=== PATIENT | female | born 1990 | race African-American/Black ===

== ENCOUNTER 2017-01-06 16:01 | Emergency (ER) | payer OTHER ==
[~2017-01-06] VITALS: Ht 172.7 cm; Wt 65.8 kg
[2017-01-06 16:45] VITALS: BP 138/78
[2017-01-06] MEDS ORDERED: NAPR500T PO (16:55)
[2017-01-06] MEDS ORDERED: PENI500T PO (16:55)
[2017-01-06] MEDS ORDERED: TRAM50TA PO (16:55)
--- NOTE | 2017-01-06 16:56 | PHYS DOC ---
Past Medical History Past Medical History: No Pertinent History Past Surgical History: No Surgical History Alcohol Use: None Drug Use: None Adult General Chief Complaint Chief Complaint: DENTAL PROBLEM HPI HPI Patient is a 26 year old female presents to the emergency department with complaints of left lower dental pain. Patient states she developed pain 2 days ago and is gotten progressively worse. She denies fever. She denies headache. She denies difficulty with swallowing or phonation. Review of Systems Review of Systems Constitutional: Denies fever or chills [] Eyes: Denies change in visual acuity, redness, or eye pain [] HENT: Denies nasal congestion or sore throat, dental pain Respiratory: Denies cough or shortness of breath [] Cardiovascular: No additional information not addressed in HPI [] GI: Denies abdominal pain, nausea, vomiting, bloody stools or diarrhea [] : Denies dysuria or hematuria [] Musculoskeletal: Denies back pain or joint pain [] Integument: Denies rash or skin lesions [] Neurologic: Denies headache, focal weakness or sensory changes [] Endocrine: Denies polyuria or polydipsia [] Allergies Allergies Allergies Coded Allergies Type Severity Reaction Last Updated Verified No Known Drug Allergies 06/25/13 No Physical Exam Physical Exam Constitutional: Well developed, well nourished, no acute distress, non-toxic appearance. [] HENT: Normocephalic, atraumatic, bilateral external ears normal, oropharynx moist, no oral exudates, nose normal. Patient with diffuse caries. Left lower gingiva, round decayed tooth #20, there is swelling and erythema. There is no pointing or fluctuance. [] Eyes: PERRLA, EOMI, conjunctiva normal, no discharge. [] Neck: Normal range of motion, no tenderness, supple without lymphadenopathy, no stridor. [] Cardiovascular:Heart rate regular rhythm, no murmur [] Lungs & Thorax: Bilateral breath sounds clear to auscultation [] Skin: Warm, dry, no erythema, no rash. [] Neurologic: Alert and oriented X 3, normal motor function, normal sensory function, no focal deficits noted. [] Current Patient Data Vital Signs Vital Signs Date Time Temp Pulse Resp B/P (MAP) Pulse Ox O2 Delivery O2 Flow Rate FiO2 01/06/17 16:45 99.3 65 20 98 Room Air 99.3 EKG EKG [] Radiology/Procedures Radiology/Procedures [] Course & Med Decision Making Course & Med Decision Making Pertinent Labs and Imaging studies reviewed. (See chart for details) [] Dragon Disclaimer Dragon Disclaimer This electronic medical record was generated, in whole or in part, using a voice recognition dictation system. Departure Departure Impression: Primary Impression: Pain, dental Disposition: HOME, SELF-CARE Condition: STABLE Referrals: NO PCP [facility]PCP) [facility] Patient Instructions: Dental Abscess, Dental Caries Additional Instructions: Follow-up with the dentist, call for appointment tomorrow. Scripts Tramadol Hcl (TRAMADOL HCL) 50 Mg Tablet 50 MG PO Q6HRS Y for PAIN, #12 TAB 0 Refills Prov: BLAISE GUERRERO APRN 01/06/17 Naproxen (NAPROSYN) 500 Mg Tablet 500 MG PO BID Y for PAIN, #20 TAB Prov: BLAISE GUERRERO APRN 01/06/17 Penicillin V Potassium (PENICILLIN V POTASSIUM) 500 Mg Tablet 1 TAB PO QID, #40 TAB Prov: BLAISE GUERRERO APRN 01/06/17 BLAISE GUERRERO APRN Jan 06, 2017 16:56
[2017-01-06] MEDS ORDERED: KETOROLAC TROMETHAMINE 60 MG/2 ML INJ. IM ONE (17:00)
== END 2017-01-06 17:03 | disposition home or self-care (01) ==
LOC: ER 16:01
DX: K08.89 Other specified disorders of teeth and supporting structures (principal)
CPT/HCPCS: 96372; 99283; J1885

== ENCOUNTER 2018-07-07 07:53 | Observation (INO) | payer OTHER ==
[~2018-07-07 07:53] MED LIST: NAPR-683 PO; PENI500T PO; TRAM50TA PO
[2018-07-07 09:00] LABS: BILIRUBIN,URINE NEGATIVE (NEG); CLARITY,URINE CLEAR; COLOR,URINE YELLOW; NITRITE,URINE NEGATIVE (NEG); PH,URINE 7.5; PROTEIN,URINE NEGATIVE (NEG-TRACE)
[2018-07-07 09:16] LABS: BACTERIA,URINE FEW /HPF (0-FEW); RBC,URINE 0 /HPF (0-2); SQUAMOUS EPITHELIAL CELL,UR MANY /LPF
== END 2018-07-07 10:18 | disposition home or self-care (01) ==
LOC: 3 SO LND 07:53
PROVIDERS: ADMIT Specialist; ATTEND Specialist
DX: O42.90 Premature rupture of membranes, unspecified as to length of time between rupture and onset of labor, unspecified weeks of gestation (principal); O26.899 Other specified pregnancy related conditions, unspecified trimester; N89.8 Other specified noninflammatory disorders of vagina; Z3A.00 Weeks of gestation of pregnancy not specified
CPT/HCPCS: 81001; G0378; G0379; 59025

== ENCOUNTER 2018-07-09 12:49 | Inpatient (IN) | payer OTHER ==
[~2018-07-09] VITALS: Ht 172.7 cm; Wt 79.9 kg
[2018-07-09 13:09] VITALS: BP 126/67
[2018-07-09] MEDS ORDERED: IV RINGERS,LACTATED 1000ML 1,000 ML IV PRN (13:15)
[2018-07-09] MEDS ORDERED: LIDOCAINE 1% PF 30 ML VIAL. INJ PRN (13:15)
[2018-07-09] MEDS ORDERED: OXYTOCIN 30 UNIT/500 ML PREMIX 500 ML IV PRN ×2 (13:15)
[2018-07-09] MEDS ORDERED: 0.9 % SODIUM CHLORIDE 10 ML DISP.SYRIN. IV PRN (13:15)
[2018-07-09 13:42] LABS: BASO # 0.1 x10^3/uL (0.0-0.2); BASO % 1 % (0-3); EOS # 0.1 x10^3/uL (0.0-0.7); EOS % 1 % (0-3); HEMATOCRIT 33.3 % (36.0-47.0); HEMOGLOBIN 11.2 g/dL (12.0-15.5); LYMPH # 1.4 x10^3/uL (1.0-4.8); LYMPH % 23 % (24-48); MEAN CORPUSCULAR HEMOGLOBIN 32 pg (25-35); MEAN CORPUSCULAR HGB CONC 34 g/dL (31-37); MEAN CORPUSCULAR VOLUME 94 fL (79-100); MONO # 0.4 x10^3/uL (0.0-1.1); MONO % 7 % (0-9); NEUT # 4.3 x10^3uL (1.8-7.7); NEUT % 68 % (31-73); PLATELET COUNT 146 x10^3/uL (140-400); RED BLOOD COUNT 3.56 x10^6/uL (3.50-5.40); RED CELL DISTRIBUTION WIDTH 13.7 % (11.5-14.5); WHITE BLOOD COUNT 6.3 x10^3/uL (4.0-11.0)
[2018-07-09 13:45] LABS: BILIRUBIN,URINE NEGATIVE (NEG); CLARITY,URINE CLEAR; COLOR,URINE YELLOW; NITRITE,URINE NEGATIVE (NEG); PROTEIN,URINE NEGATIVE (NEG-TRACE); UROBILINOGEN,URINE 0.2 mg/dL (0.2 mg/dL)
[2018-07-09 13:49] LABS: BARBITURATES NEG (NEG); BENZODIAZEPINES NEG (NEG); CANNABINOIDS NEG (NEG); COCAINE NEG (NEG); METHADONE NEG (NEG); OPIATES NEG (NEG); PHENCYCLIDINE NEG (NEG)
[2018-07-09 13:52] LABS: AMPHETAMINE/METHAMPHETAMINE NEG (NEG)
[2018-07-09 13:53] LABS: BACTERIA,URINE MODERATE /HPF (0-FEW); RBC,URINE OCC /HPF (0-2); WBC,URINE OCC /HPF (0-4)
[2018-07-09 13:54] LABS: SQUAMOUS EPITHELIAL CELL,UR MOD /LPF
[2018-07-09 14:00] LABS: CALCIUM 8.5 mg/dL (8.5-10.1); CREATININE 0.6 mg/dL (0.6-1.0); POTASSIUM 3.8 mmol/L (3.5-5.1)
--- NOTE | 2018-07-09 14:08 | PDOC1 ---
OB - History Hx of Present Care: Good Care Ultrasounds: Normal mid trimester US Obstetrical Complications: None Medical Complications: None Past Family/Social History * Past Medical, Surgical, Family and Obstetric Histories reviewed from chart. Rubella: Immune RPR/VDRL: Negative GBS Status: Negative HBsAG: Negative OB - Chief Complaint & HPI Date of Admission: Date of Admission: Jul 09, 2018 at 12:49 Chief Complaint/History : 3 Para: 2 EGA: 39 Reason for admission: induction of labor Admission Nurse Assessment Rev: Yes OB - Admission Exam Physical Exam HEENT: Normal Heart: Regular Rate Lungs: Clear Abdomen: Gravid, Non tender, Soft Extremities: Edema Reflexes: Normal Cervical Dilatation: 2cm Effacement: 50% Station: -3 Membranes: Intact Heart Rate: Normal Accelerations: Accelerations Present Decelerations: No decelerations Contractions on Admission: 6-10 Minutes Apart Intensity: Mild Text A: 39 wks IUP IOL secondary discomforts of P: Admit for IOL pitocin. DESEAN HOFFMANN Jr, MD Jul 09, 2018 14:08
[2018-07-09] MEDS ORDERED: NALBUPHINE 10 MG/ML AMPUL. IV PRN (17:15)
[2018-07-09] MEDS ORDERED: ONDANSETRON PF 4 MG/2 ML VIAL. ONE (17:30)
[2018-07-09] MEDS ORDERED: ONDANSETRON PF 4 MG/2 ML VIAL. IV PRN (17:45)
[2018-07-09] MEDS: IBUPROFEN 400 MG TABLET. PO PRN (20:35)
--- NOTE | 2018-07-09 20:37 | OP ---
DATE OF SURGERY: 07/09/2018 This patient is a 28-year-old female who is a 6, para 2, 39 week . The patient of Dr. Alston, admitted for induction of labor. She received IV Pitocin and she did have a spontaneous labor after that and got to 5 cm and then rapidly dilated to complete and had a precipitous vaginal delivery. A live male weighing 5 pounds 15 ounces, delivered at 5:15 p.m. Cord was clamped and cord blood was taken, placenta removed spontaneous. Estimated blood loss about 100 mL. The scores were good and no perineal tears. She did receive Pitocin after delivery of the placenta and the mother has tolerated the delivery well and baby is referred to filtration operator for further care and treatment. MARITZA HOLT MD DR: ANAIS/joe JOB#: [id number] / [id number]
[2018-07-09 23:30] VITALS: BP 104/66
[2018-07-10 04:15] VITALS: BP 120/69
--- NOTE | 2018-07-10 07:03 | PDOC ---
GENERAL General: Patient nursing the Baby. Doing ok. VITAL SIGNS Vital Signs: Vital Signs Date Time Temp Pulse Resp B/P (MAP) Pulse Ox O2 Delivery O2 Flow Rate FiO2 07/10/18 04:15 97.9 65 14 120/69 (86) 100 Room Air 97.9 I & O I & O Intake and Output 07/10/18 07:00 Intake Total 350 ml Balance 350 ml Intake Oral 350 ml # Voids 1 ALLERGIES Allergies: Allergies Coded Allergies Type Severity Reaction Last Updated Verified No Known Drug Allergies 06/25/13 No MEDS Medications: Current Medications Medications (Trade) Dose Ordered Sig/Alysa Start Time Stop Time Status Last Admin Dose Admin Ibuprofen (Motrin) 800 mg PRN Q6HRS PRN 07/09/18 13:15 07/09/18 20:35 800 MG Lidocaine HCl (Xylocaine 1% Pf 30ml Vial) 30 ml 1X PRN PRN 07/09/18 13:15 07/11/18 13:14 Nalbuphine HCl (Nubain) 10 mg PRN Q1HR PRN 07/09/18 17:15 07/09/18 17:30 10 MG Ondansetron HCl (Zofran) 4 mg PRN Q6HRS PRN 07/09/18 17:45 07/09/18 17:37 4 MG Oxytocin/Sodium Chloride 500 ml @ 0 mls/hr CONT PRN PRN 07/09/18 13:15 Ringer's Solution 1,000 ml @ 125 mls/hr Q8H PRN 07/09/18 13:15 07/09/18 13:39 125 MLS/HR Sodium Chloride (Normal Saline Flush) 3 ml QSHIFT PRN 07/09/18 13:15 LAB Lab: Laboratory Tests Test 07/09/18 13:00 07/09/18 13:27 Urine Collection Type Unknown Urine Color Yellow Urine Clarity Clear Urine pH 7.0 Urine Specific Sherman 1.010 Urine Protein Negative mg/dL (NEG-TRACE) Urine Glucose (UA) Negative mg/dL (NEG) Urine Ketones (Stick) Negative mg/dL (NEG) Urine Blood Negative (NEG) Urine Nitrite Negative (NEG) Urine Bilirubin Negative (NEG) Urine Urobilinogen Dipstick 0.2 mg/dL (0.2 mg/dL) Urine Leukocyte Esterase Negative (NEG) Urine RBC Occ /HPF (0-2) Urine WBC Occ /HPF (0-4) Urine Squamous Epithelial Cells Mod /LPF Urine Bacteria Moderate /HPF (0-FEW) Urine Opiates Screen Neg (NEG) Urine Methadone Screen Neg (NEG) Urine Barbiturates Neg (NEG) Urine Phencyclidine Screen Neg (NEG) Urine Amphetamine/Methamphetamine Neg (NEG) Urine Benzodiazepines Screen Neg (NEG) Urine Cocaine Screen Neg (NEG) Urine Cannabinoids Screen Neg (NEG) Urine Ethyl Alcohol Neg (NEG) White Blood Count 6.3 x10^3/uL (4.0-11.0) Red Blood Count 3.56 x10^6/uL (3.50-5.40) Hemoglobin 11.2 g/dL (12.0-15.5) Hematocrit 33.3 % (36.0-47.0) Mean Corpuscular Volume 94 fL (79-100) Mean Corpuscular Hemoglobin 32 pg (25-35) Mean Corpuscular Hemoglobin Concent 34 g/dL (31-37) Red Cell Distribution Width 13.7 % (11.5-14.5) Platelet Count 146 x10^3/uL (140-400) Neutrophils (%) (Auto) 68 % (31-73) Lymphocytes (%) (Auto) 23 % (24-48) Monocytes (%) (Auto) 7 % (0-9) Eosinophils (%) (Auto) 1 % (0-3) Basophils (%) (Auto) 1 % (0-3) Neutrophils # (Auto) 4.3 x10^3uL (1.8-7.7) Lymphocytes # (Auto) 1.4 x10^3/uL (1.0-4.8) Monocytes # (Auto) 0.4 x10^3/uL (0.0-1.1) Eosinophils # (Auto) 0.1 x10^3/uL (0.0-0.7) Basophils # (Auto) 0.1 x10^3/uL (0.0-0.2) Sodium Level 137 mmol/L (136-145) Potassium Level 3.8 mmol/L (3.5-5.1) Chloride Level 101 mmol/L (98-107) Carbon Dioxide Level 24 mmol/L (21-32) Anion Gap 12 (6-14) Blood Urea Nitrogen 5 mg/dL (7-20) Creatinine 0.6 mg/dL (0.6-1.0) Estimated GFR (Cockcroft-Gault) 144.0 Glucose Level 98 mg/dL (70-99) Calcium Level 8.5 mg/dL (8.5-10.1) Treponema pallidum Antibody Nonreactive (Nonreactive) ASSESSMENT & PLAN A&P Abdomen soft Uterus firm . Lochia Normal. Pt will go home tomorow. MARITZA HOLT MD Jul 10, 2018 07:03
[2018-07-10 07:18] LABS: HEMATOCRIT 32.4 % (36.0-47.0); HEMOGLOBIN 10.6 g/dL (12.0-15.5)
[2018-07-10 10:45] VITALS: BP 112/72
[2018-07-10] MEDS: IBUPROFEN 400 MG TABLET. PO PRN (17:53)
[2018-07-10 17:57] VITALS: BP 124/74
[2018-07-10] MEDS ORDERED: DIPHTH,PERTUSS(ACELL),TET TOX 0.5 ML DISP.SYRIN. VAX IM ONE (18:30)
[2018-07-10 22:00] VITALS: BP 111/71
[2018-07-11 05:30] VITALS: BP 129/73
[2018-07-11] MEDS: IBUPROFEN 400 MG TABLET. PO PRN (05:35)
[2018-07-11] MEDS ORDERED: MEASLES, MUMPS & RUBELLA VACC 0.5 ML VIAL. VAX SQ ONE (09:00)
--- NOTE | 2018-07-11 09:28 | PDOC3 ---
OB DISCHARGE SUMMARY DATE OF ADMISSION: 07/09/18 DATE OF DISCHARGE: 07/11/18 REASON FOR ADMISSION: Onset of labor INTRAPARTUM PROCEDURES: Spontanous Vag Deliv DISCHARGE DIAGNOSIS: Term Delivered DISCHARGE INFORMATION: Activity (ad kemar), Diet (regular), Instructions (pelvic rest x 6 wks) HOSPITAL COURSE Term gestation delivered vaginally uncomplicated. DESEAN HOFFMANN Jr, MD Jul 11, 2018 09:27
--- NOTE | 2018-07-11 09:28 | DISCH ---
DISCHARGE INSTRUCTIONS Condition on Discharge Condition on Discharge: Stable Activity After Discharge Activity Instructions for Disc: Activity as tolerated Lifting Instructions after Dis: No heavy lifting Driving Instructions after Dis: Do not drive today Diet after Discharge Diet after Discharge: Regular Contacting the [facility] after DC Call your doctor for: Concerns you may have Follow-Up Follow up with: Dr. Alston in 2 weeks. DESEAN HOFFMANN Jr, MD Jul 11, 2018 09:28
[2018-07-11] MEDS ORDERED: NAPR-683 PO (09:30)
[2018-07-11 16:17] VITALS: BP 117/80
== END 2018-07-11 17:36 | disposition home or self-care (01) | DRG 807 ==
LOC: 3 SO LND 12:49 → 3 NORTH 22:45
PROVIDERS: ADMIT Specialist; ATTEND Specialist
PROC: 10E0XZZ Delivery of Products of Conception, External Approach (ICD-10-PCS; principal; 2018-07-09)
PROC: 3E033VJ Introduction of Other Hormone into Peripheral Vein, Percutaneous Approach (ICD-10-PCS; 2018-07-09)
DX: O80 Encounter for full-term uncomplicated delivery (principal); Z37.0 Single live birth; Z3A.39 39 weeks gestation of pregnancy
CPT/HCPCS: 36415; 80048; 80307; 81001; 85014; 85018; 85025; 86592; 86850; 86900; 86901; 87086; 90471; 90715; J2300; J2405; J2590; J7120

== ENCOUNTER 2019-02-25 06:08 | Emergency (ER) | payer SELFPAY ==
[~2019-02-25] VITALS: Ht 172.7 cm; Wt 63.5 kg
[2019-02-25 07:00] VITALS: BP 123/75
[2019-02-25] MEDS ORDERED: TETRACAINE 0.5% OPHTH SOLUTION 4ML BOTTLE. OS ONE (08:45)
[2019-02-25] MEDS ORDERED: FLUORESCEIN OPHTH TEST STRIP. OS ONE (08:45)
[2019-02-25] MEDS ORDERED: ACETAMINOPHEN 500 MG TABLET PO ONE (08:45)
[2019-02-25] MEDS ORDERED: ONDANSETRON ODT 4 MG TAB.RAPDIS. ONE (09:34)
[2019-02-25] MEDS ORDERED: ONDANSETRON ODT 4 MG TAB.RAPDIS. PO ONE (09:45)
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
[2019-02-25] MEDS ORDERED: OFLO5DRO RIGHTEYE (10:28)
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
== END 2019-02-25 10:45 | disposition home or self-care (01) ==
LOC: ER 06:08
DX: O9A.311 Physical abuse complicating pregnancy, first trimester (principal); O30.041 Twin pregnancy, dichorionic/diamniotic, first trimester; H10.32 Unspecified acute conjunctivitis, left eye; S39.91XA Unspecified injury of abdomen, initial encounter; Y04.8XXA Assault by other bodily force, initial encounter; Y93.89 Activity, other specified; Y92.89 Other specified places as the place of occurrence of the external cause; Y99.8 Other external cause status; Z3A.01 Less than 8 weeks gestation of pregnancy
CPT/HCPCS: 76801; 81025; 99284; Q0162

== ENCOUNTER 2019-09-15 19:28 | Emergency (ER) | payer SELFPAY ==
[~2019-09-15] VITALS: Ht 172.7 cm; Wt 68.1 kg
[~2019-09-15 19:28] MED LIST changes: +OFLO5DRO RIGHTEYE
[2019-09-15] MEDS ORDERED: CEPH500T PO (19:40)
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
[2019-09-15 19:54] VITALS: BP 115/72
== END 2019-09-15 20:29 | disposition home or self-care (01) ==
LOC: ER 19:28
DX: S01.511A Laceration without foreign body of lip, initial encounter (principal); F17.200 Nicotine dependence, unspecified, uncomplicated; Y08.89XA Assault by other specified means, initial encounter; Y93.89 Activity, other specified; Y92.89 Other specified places as the place of occurrence of the external cause; Y99.8 Other external cause status
CPT/HCPCS: 99283

== ENCOUNTER 2019-12-22 11:46 | Emergency (ER) | payer SELFPAY ==
[~2019-12-22] VITALS: Ht 172.7 cm; Wt 70.0 kg
[~2019-12-22 11:46] MED LIST changes: +CEPH500T PO
[2019-12-22 12:04] VITALS: BP 127/62
[2019-12-22] MEDS ORDERED: AZITHROMYCIN 250 MG TABLET. PO ONE (12:15)
[2019-12-22] MEDS ORDERED: metroNIDAZOLE 500 MG TABLET PO ONE (12:15)
[2019-12-22] MEDS ORDERED: cefTRIAXone IM 250 MG VIAL IM ONE (12:15)
[2019-12-22 12:42] LABS: BILIRUBIN,URINE NEGATIVE (NEG); CLARITY,URINE CLEAR; COLOR,URINE AMBER; NITRITE,URINE NEGATIVE (NEG); PH,URINE 6.5 (<5.0-8.0); PROTEIN,URINE NEGATIVE (NEG-TRACE)
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
[2019-12-22 12:59] LABS: BACTERIA,URINE FEW /HPF (0-FEW); RBC,URINE 0 /HPF (0-2); SQUAMOUS EPITHELIAL CELL,UR MANY /LPF; WBC,URINE RARE /HPF (0-4)
[2019-12-22] MEDS ORDERED: ONDANSETRON ODT 4 MG TAB.RAPDIS. PO ONE (13:15)
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
[2019-12-22] MEDS ORDERED: SULF1TAB23 PO (15:05)
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
== END 2019-12-22 15:15 | disposition home or self-care (01) ==
LOC: ER 11:46
DX: S13.4XXA Sprain of ligaments of cervical spine, initial encounter (principal); H11.31 Conjunctival hemorrhage, right eye; H66.93 Otitis media, unspecified, bilateral; F17.200 Nicotine dependence, unspecified, uncomplicated; Y08.89XA Assault by other specified means, initial encounter; Y93.89 Activity, other specified; Y92.89 Other specified places as the place of occurrence of the external cause; Y99.8 Other external cause status
CPT/HCPCS: 70450; 72040; 81001; 81025; 87491; 87591; 96372; 99285; J0696

== ENCOUNTER 2019-12-25 08:10 | Emergency (ER) | payer SELFPAY ==
[~2019-12-25] VITALS: Ht 172.7 cm; Wt 70.0 kg
[~2019-12-25 08:10] MED LIST changes: +SULF1TAB23 PO
[2019-12-25 08:19] VITALS: BP 122/65
[2019-12-25] MEDS ORDERED: PRED20TA PO (08:42)
--- NOTE | 2019-12-25 08:42 | PHYS DOC ---
Past Medical History Past Medical History: No Pertinent History Past Surgical History: No Surgical History Smoking Status: Current Every Day Smoker Alcohol Use: None Drug Use: None General Adult EDM: Chief Complaint: ABSCESS HPI: HPI: Patient is a 29-year-old female who was recently treated for an infection on her left ear lobe for which she took antibiotics. She states she has had a small swollen area below her left ear that has increased in size over the last few days and has become a little more painful. She denies any redness. She is not had any fever. She is taken her antibiotics as directed. [] Review of Systems: Review of Systems: Constitutional: Denies fever or chills. [] Eyes: Denies change in visual acuity. [] HENT: Denies nasal congestion or sore throat. [] Respiratory: Denies cough or shortness of breath. [] Cardiovascular: Denies chest pain or edema. [] GI: Denies abdominal pain, nausea, vomiting, bloody stools or diarrhea. [] : Denies dysuria. [] Musculoskeletal: Denies back pain or joint pain. [] Integument: Denies rash. [] Neurologic: Denies headache, focal weakness or sensory changes. [] Endocrine: Denies polyuria or polydipsia. [] Lymphatic: Swollen gland below left ear [] Psychiatric: Denies depression or anxiety. [] Heart Score: Risk Factors: Risk Factors: DM, Current or recent (<one month) smoker, HTN, HLP, family history of CAD, obesity. Risk Scores: Score 0 - 3: 2.5% MACE over next 6 weeks - Discharge Home Score 4 - 6: 20.3% MACE over next 6 weeks - Admit for Clinical Observation Score 7 - 10: 72.7% MACE over next 6 weeks - Early Invasive Strategies Allergies: Allergies: Allergies Coded Allergies Type Severity Reaction Last Updated Verified nickel Allergy Mild 12/25/19 Yes Physical Exam: PE: Constitutional: Well developed, well nourished, no acute distress, non-toxic appearance. [] HENT: Normocephalic, atraumatic, bilateral external ears normal, oropharynx moist, no oral exudates, nose normal. [] Eyes: PERRLA, EOMI, conjunctiva normal, no discharge. [] Neck: Normal range of motion, she has a swollen posterior cervical lymph node that is mildly tender but not fluctuant, supple, no stridor. [] Cardiovascular:Heart rate regular rhythm, no murmur [] Lungs & Thorax: Bilateral breath sounds clear to auscultation [] Abdomen: Bowel sounds normal, soft, no tenderness, no masses, no pulsatile kendall s. [] Skin: Warm, dry, no erythema, no rash. [] Back: No tenderness, no CVA tenderness. [] Extremities: No tenderness, no cyanosis, no clubbing, ROM intact, no edema. [] Neurologic: Alert and oriented X 3, normal motor function, normal sensory function, no focal deficits noted. [] Psychologic: Affect normal, judgement normal, mood normal. [] Current Patient Data: Vital Signs: Vital Signs Date Time Temp Pulse Resp B/P (MAP) Pulse Ox O2 Delivery O2 Flow Rate FiO2 12/25/19 08:19 98.4 86 16 122/65 (84) 98 Room Air 98.4 EKG: EKG: [] Radiology/Procedures: Radiology/Procedures: [] Course & Med Decision Making: Course & Med Decision Making Pertinent Labs and Imaging studies reviewed. (See chart for details) [] Dragon Disclaimer: DragGemvara Disclaimer: This electronic medical record was generated, in whole or in part, using a voice recognition dictation system. Departure Departure Impression: Primary Impression: Lymphadenitis, acute Disposition: 01 HOME, SELF-CARE Condition: STABLE Referrals: NO PCP (PCP) Additional Instructions: You have a swollen lymph node below your left ear. This is the body's response to the infection that she just had on your left ear. If you have any antibiotics left make sure you continue to take those and if you are through with the antibiotics that is okay. I will prescribe you with steroids today that should help take the swelling down. If the area becomes more swollen or more painful return to the emergency department for further evaluation. Scripts Prednisone (PREDNISONE) 20 Mg Tablet 3 TAB PO DAILY PRN for Swollen lymph node for 5 Days, #15 TAB Prov: JYOTI YANES DO 12/25/19 Justicifation of Admission Dx: Justifications for Admission: Justification of Admission Dx: No JYOTI YANES DO Dec 25, 2019 08:42
[2019-12-25] MEDS ORDERED: predniSONE 20 MG TABLET PO ONE (08:45)
== END 2019-12-25 08:46 | disposition home or self-care (01) ==
LOC: ER 08:10
DX: L04.0 Acute lymphadenitis of face, head and neck (principal); F17.200 Nicotine dependence, unspecified, uncomplicated; Z88.8 Allergy status to other drugs, medicaments and biological substances
CPT/HCPCS: 99283; J7512

== ENCOUNTER 2020-01-11 07:19 | Emergency (ER) | payer SELFPAY ==
[~2020-01-11] VITALS: Ht 172.7 cm; Wt 70.0 kg
[~2020-01-11 07:19] MED LIST changes: +PRED20TA PO
[2020-01-11 07:30] VITALS: BP 112/66
[2020-01-11 08:16] LABS: BILIRUBIN,URINE NEGATIVE (NEG); CLARITY,URINE CLEAR; COLOR,URINE YELLOW; NITRITE,URINE NEGATIVE (NEG); PROTEIN,URINE 30 mg/dL (NEG-TRACE)
[2020-01-11 08:24] LABS: SQUAMOUS EPITHELIAL CELL,UR MANY /LPF
[2020-01-11 08:25] LABS: BACTERIA,URINE MODERATE /HPF (0-FEW); HYALINE CASTS, URINE OCCASIONAL /HPF; RBC,URINE 0 /HPF (0-2)
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
[2020-01-11] MEDS ORDERED: HYDROcodone/APAP 5/325MG 1 TAB TABLET PO ONE (08:45)
[2020-01-11] MEDS ORDERED: IBUPROFEN 400 MG TABLET. PO ONE (08:45)
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
[2020-01-11] MEDS ORDERED: NAPR-682 PO (08:57)
== END 2020-01-11 09:09 | disposition home or self-care (01) ==
LOC: ER 07:19
DX: S30.0XXA Contusion of lower back and pelvis, initial encounter (principal); R10.9 Unspecified abdominal pain; R07.81 Pleurodynia; F17.200 Nicotine dependence, unspecified, uncomplicated; Z88.8 Allergy status to other drugs, medicaments and biological substances; Y08.89XA Assault by other specified means, initial encounter; Y93.89 Activity, other specified; Y92.89 Other specified places as the place of occurrence of the external cause; Y99.8 Other external cause status
CPT/HCPCS: 76770; 81001; 81025; 87086; 99284